=== PATIENT | female | born 1960 | race Caucasian/White ===

== ENCOUNTER 2019-07-30 16:02 | Emergency (ER) | payer OTHER ==
[~2019-07-30] VITALS: Ht 165.1 cm; Wt 70.3 kg
[2019-07-30 16:06] VITALS: BP 195/106
--- NOTE | 2019-07-30 16:30 | NUR ---
PT STATED SHE NO LONGER WANTS TO BE SEEN, LWBS AT THIS TIME
== END 2019-07-30 17:00 | disposition left against medical advice (07) ==
LOC: MED 16:02
DX: R30.0 Dysuria (principal); Z53.21 Procedure and treatment not carried out due to patient leaving prior to being seen by health care provider

== ENCOUNTER 2019-08-06 16:12 | Emergency (ER) | payer OTHER ==
[~2019-08-06] VITALS: Ht 165.1 cm; Wt 70.8 kg
[2019-08-06 16:15] VITALS: BP 156/82
--- NOTE | 2019-08-06 16:37 | NUR ---
C/O DYSURIA & PELVIC PAIN X1 WEEK. DENIES N/V/FEVER. BED IN LOW POSITION, SIDE RAIL UP X1
--- NOTE | 2019-08-06 16:38 | NUR ---
TOVA FOX AT BEDSIDE EVALUATING PT
[2019-08-06 17:28] VITALS: BP 156/82
--- NOTE | 2019-08-06 17:28 | NUR ---
Patient discharged with v/s stable. Written and verbal after care instructions given and explained. Patient verbalized understanding. Ambulatory with steady gait. All questions addressed prior to discharge. Advised to follow up with PMD. rx of pyridium & keflex given. side effects explained
[2019-08-06 17:52] LABS: BILIRUBIN,URINE NEGATIVE (NEGATIVE); BLOOD, URINE 2+ (NEGATIVE); COLOR,URINE ORANGE (YELLOW); LEUKOCYTE ESTERASE ,URINE 1+ (NEGATIVE); NITRITE, URINE NEGATIVE (NEGATIVE); UGLUCOSE NEGATIVE (NEGATIVE)
[2019-08-06 17:55] LABS: APPEARANCE,URINE HAZY (CLEAR)
[2019-08-06 18:14] LABS: CALCIUM OXALATE CRYSTALS,UR 0-10 /HPF (None Seen); RBC,URINE 20-50 /HPF (0-5); WBC,URINE TOO MANY TO COUNT /HPF (0-5)
== END 2019-08-06 17:28 | disposition home or self-care (01) ==
LOC: MED 16:12
DX: N39.0 Urinary tract infection, site not specified (principal)
CPT/HCPCS: 81001; 87086; 87186; 99283

== ENCOUNTER 2020-07-04 13:33 | Emergency (ER) | payer OTHER ==
[~2020-07-04] VITALS: Ht 167.6 cm; Wt 65.8 kg
[2020-07-04 13:44] VITALS: BP 147/101
--- NOTE | 2020-07-04 13:58 | NUR ---
RECEIVED THIS 60 YEAR OLD FEMALE, AMBULATORY FROM TRIAGE, AWAKE, ALERT, ORIENTEDX4, BREATHING SPONTANEOUSLY AT ROOM AIR. WITH CHIEF COMPLAINTS OF LEFT FOOT PAIN FOR A WEEK AND SORE THROAT. MEDICAL HISTORY OF HTN AND ANXIETY. SAFETY MEASURES IN PLACE AND CONTINUE MONITOR
--- NOTE | 2020-07-04 14:26 | NUR ---
TOVA Coyne with pt for MSE.
--- NOTE | 2020-07-04 14:40 | NUR ---
[facility] PCR SWAB DONE AND SENT TO LAB
--- NOTE | 2020-07-04 15:09 | NUR ---
RE-ASSESSED BY PHYSICIAN IMPROVEMENT RN, MADE ORDER TO DISCHARGE AND CARRIED OUT.
--- NOTE | 2020-07-04 15:38 | NUR ---
DISCHARGE INSTRUCTION GIVEN AND VERBALIZED UNDERSTANDING, REQUESTING FOR TRANSPORTATION AND INSTRUCTED AND ACCOMPANIED HER WAIT IN THE LOBBY. TABLE FILLER ARRANGING FOR TRANSPORTATION.
[2020-07-04 15:42] VITALS: BP 132/75
== END 2020-07-04 15:38 | disposition home or self-care (01) ==
LOC: MED 13:33
DX: R09.89 Other specified symptoms and signs involving the circulatory and respiratory systems (principal); Z20.822 Contact with and (suspected) exposure to COVID-19; R51.9 Headache, unspecified; M79.10 Myalgia, unspecified site
CPT/HCPCS: 73630; 99284; U0003

== ENCOUNTER 2021-03-21 09:08 | Emergency (ER) | payer OTHER ==
[~2021-03-21] VITALS: Ht 167.6 cm; Wt 71.7 kg
[2021-03-21 09:15] VITALS: BP 175/117
--- NOTE | 2021-03-21 09:21 | NUR ---
DR HERNANDEZ AT BEDSIDE EVALUATING PT
--- NOTE | 2021-03-21 09:22 | NUR ---
DR. HERNANDEZ BEDSIDE EVALUATING PT
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
--- NOTE | 2021-03-21 09:27 | NUR ---
PT TAKEN TO XRAY VIA W/C
--- NOTE | 2021-03-21 09:33 | NUR ---
PATIENT RETURNED FROM XRAY VIA WHEELCHAIR.
--- NOTE | 2021-03-21 09:46 | NUR ---
PATIENT PROVIDED WITH ICE PACK
--- NOTE | 2021-03-21 10:20 | NUR ---
DR HERNANDEZ AT BEDSIDE.
[2021-03-21] MEDS ORDERED: HYDROcodone/APAP 5/325 MG 1 TAB TAB PO ONE (10:25)
[2021-03-21] MEDS ORDERED: KETOROLAC 30 MG/ML VIAL IM ONE (10:25)
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
[2021-03-21] MEDS ORDERED: LIDOCAINE 2% 1000 MG/50 ML VIAL INJ ONE (11:00)
--- NOTE | 2021-03-21 11:05 | NUR ---
PT REFUSING FOR HER TO ARM TO BE REDUCED BY DR. HERNANDEZ. PT REQUESTING TO LEAVE THE [facility]. MADE AWARE. PT GAVE OKAY TO SPLINT ARM
[2021-03-21] MEDS ORDERED: ACET-8386 PO (11:12)
[2021-03-21] MEDS ORDERED: IBUP-2213 PO (11:12)
--- NOTE | 2021-03-21 11:23 | NUR ---
PT'S LEFT ARM WAS SPLINTED AND PLACED IN A SLING. ERMD NOTIFIED.
--- NOTE | 2021-03-21 11:23 | NUR ---
Patient discharged with v/s stable. Written and verbal after care instructions given and explained. Patient alert, oriented and verbalized understanding of instructions. Ambulatory with steady gait. All questions addressed prior to discharge. ID band removed. Patient advised to follow up with PMD. Rx of IBUPROFEN AND HYDROCODONE/ACETAMINOPHEN given. Patient educated on indication of medication including possible reaction and side effects. Opportunity to ask questions provided and answered.
[2021-03-21 11:25] VITALS: BP 168/101
== END 2021-03-21 11:23 | disposition home or self-care (01) ==
LOC: MED 09:08
DX: S52.592A Other fractures of lower end of left radius, initial encounter for closed fracture (principal); S52.612A Displaced fracture of left ulna styloid process, initial encounter for closed fracture; I10 Essential (primary) hypertension; F32.9 Major depressive disorder, single episode, unspecified; Z79.899 Other long term (current) drug therapy; W19.XXXA Unspecified fall, initial encounter; Y93.89 Activity, other specified; Y92.89 Other specified places as the place of occurrence of the external cause; Y99.8 Other external cause status
CPT/HCPCS: 29125; 73110; 96372; 99283; J1885

== ENCOUNTER 2021-03-27 16:52 | Emergency (ER) | payer OTHER ==
[~2021-03-27] VITALS: Ht 167.6 cm; Wt 73.0 kg
[~2021-03-27 16:52] MED LIST: ACET-8386 PO; IBUP-2213 PO
[2021-03-27 16:58] VITALS: BP 140/77
--- NOTE | 2021-03-27 17:19 | NUR ---
PATIENT LEFT WITHOUT BEING SEEN BY DR. LIU. NO FURTHER CARE PROVIDED FOR PATIENT.
== END 2021-03-27 17:19 | disposition left against medical advice (07) ==
LOC: MED 16:52
DX: M79.602 Pain in left arm (principal); Z53.21 Procedure and treatment not carried out due to patient leaving prior to being seen by health care provider

== ENCOUNTER 2021-03-28 12:26 | Emergency (ER) | payer OTHER ==
[~2021-03-28] VITALS: Ht 167.6 cm; Wt 74.4 kg
[2021-03-28 12:32] VITALS: BP 145/92
--- NOTE | 2021-03-28 12:43 | NUR ---
PT AMBULATED TO ER BED 5
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
[2021-03-28] MEDS ORDERED: IBUPROFEN 600 MG TAB PO ONE (13:30)
--- NOTE | 2021-03-28 14:19 | NUR ---
EMT at bedside for splint application
--- NOTE | 2021-03-28 14:33 | NUR ---
Patient discharged with v/s stable. Written and verbal after care instructions ABOUT RADIAL FRACTURE given and explained. Patient verbalized understanding. Ambulatory with steady gait. All questions addressed prior to discharge. Advised to follow up with PMD.
== END 2021-03-28 14:33 | disposition home or self-care (01) ==
LOC: MED 12:26
DX: S52.90XD Unspecified fracture of unspecified forearm, subsequent encounter for closed fracture with routine healing (principal); I10 Essential (primary) hypertension; Z46.89 Encounter for fitting and adjustment of other specified devices; Z79.899 Other long term (current) drug therapy; X58.XXXD Exposure to other specified factors, subsequent encounter
CPT/HCPCS: 29105; 99283

== ENCOUNTER 2022-01-17 17:04 | Emergency (ER) | payer OTHER ==
[~2022-01-17] VITALS: Ht 167.6 cm; Wt 82.6 kg
[2022-01-17 17:13] VITALS: BP 158/93
[2022-01-17] MEDS ORDERED: ACETAMINOPHEN 325 MG TAB PO ONE (18:45)
[2022-01-17 19:07] LABS: BASOPHILS # (AUTO) 0.1 K/uL (0.00-0.22); BASOPHILS % (AUTO) 0.7 % (0.0-2.0); EOSINOPHILS # (AUTO) 0.2 K/uL (0-0.4); EOSINOPHILS % (AUTO) 2.3 % (0.0-4.0); HEMOGLOBIN 13.5 g/dL (12.0-16.0); LYMPHOCYTES # (AUTO) 3.3 K/uL (2.5-16.5); LYMPHOCYTES % (AUTO) 35.5 % (20.5-51.1); MEAN CORPUSCULAR HEMOGLOBIN 29 pg (27-31); MEAN CORPUSCULAR HGB CONC 33 g/dL (33-37); MEAN CORPUSCULAR VOLUME 88.5 fL (80-94); MONOCYTES # (AUTO) 0.7 K/uL (0.8-1.0); NEUTROPHILS % (AUTO) 54.5 % (42.2-75.2); PLATELET COUNT (AUTO) 287 K/uL (140-450); RED BLOOD CELL COUNT(AUTO) 4.63 MIL/uL (4.20-5.40); RED CELL DISTRIBUTION WIDTH 13.4 % (11.6-13.7); WHITE BLOOD COUNT (AUTO) 9.2 K/uL (4.8-10.8)
[2022-01-17 19:31] LABS: APPEARANCE,URINE CLEAR (CLEAR); BILIRUBIN,URINE NEGATIVE (NEGATIVE); BLOOD, URINE NEGATIVE (NEGATIVE); COLOR,URINE YELLOW (YELLOW); LEUKOCYTE ESTERASE ,URINE NEGATIVE (NEGATIVE); NITRITE, URINE NEGATIVE (NEGATIVE); UGLUCOSE NEGATIVE (NEGATIVE)
[2022-01-17 19:42] LABS: ALBUMIN 3.8 g/dL (3.4-5.0); ANION GAP 14.5 (8-16); ASPARTATE AMINOTRANSFERASE 13 U/L (15-37); CARBON DIOXIDE 27.5 mmol/L (21-32); CHLORIDE 105 mmol/L (98-107); CREATININE 1.3 mg/dL (0.6-1.3); GFR ARICAN-AMERICAN 54 mL/min (>90); GLUCOSE 94 mg/dL (74-106); SODIUM SERUM 143 mmol/L (136-145); TOTAL BILIRUBIN 0.2 mg/dL (0.0-1.0); UREA NITROGEN, BLOOD 18 mg/dL (7-18)
[2022-01-17 23:30] VITALS: BP 146/70
== END 2022-01-17 23:30 | disposition home or self-care (01) ==
LOC: MED 17:04
DX: R07.89 Other chest pain (principal); R53.83 Other fatigue; I10 Essential (primary) hypertension; F17.210 Nicotine dependence, cigarettes, uncomplicated; Z79.899 Other long term (current) drug therapy; Z98.890 Other specified postprocedural states
CPT/HCPCS: 36415; 71045; 80053; 81003; 84443; 84484; 85025; 93005; 99285